=== PATIENT | female | born 1960 | race Caucasian/White ===

== ENCOUNTER → 2023-09-19 14:53 | Outpatient (REF) | payer OTHER, SELFPAY | LOC: HWRAD 14:53 | PROVIDERS: ATTENDING PHYSICIAN Internal Medicine Rheumatology; FAMILY PHYSICIAN Internal Medicine | DX: M81.0 Age-related osteoporosis without current pathological fracture (principal) | CPT/HCPCS: 77080 ==

== ENCOUNTER 2023-10-23 14:27 | Emergency (ER) | payer OTHER, SELFPAY ==
[2023-10-23 14:36] VITALS: BP 115/86
[2023-10-23 15:03] LABS: INR 1.16; PT 14.6 Sec (11.4-14.6)
[2023-10-23 15:06] LABS: ALT (SGPT) 26 U/L (0-35); AST (SGOT) 32 U/L (14-36); Albumin 4.4 g/dl (3.5-5.0); Alkaline Phosphatase 80 U/L (38-126); Blood Urea Nitrogen 15 mg/dl (7-17); Calcium 9.5 mg/dl (8.4-10.2); Carbon Dioxide 30 mmol/L (22-30); Chloride 102 mmol/L (98-107); Glucose 92 mg/dl (70-99); Sodium 137 mmol/L (135-145); Total Bilirubin 0.5 mg/dl (0.2-1.3); Total Protein 6.9 g/dl (6.3-8.2); eGFR > 60.00
[2023-10-23 15:10] LABS: Hematocrit 36.7 % (37.0-47.0); Hemoglobin 12.8 g/dL (12.0-16.0); Mean Corp Hgb Conc. 34.9 g/dL (33.0-37.0); Mean Corpuscular Hgb 33.2 pg (27.0-31.0); Mean Corpuscular Volume 95.3 fL (81.0-99.0); Mean Platelet Volume 9.1 fL (7.4-10.4); Platelet Count 225 10^3/uL (130-400); Red Blood Cell Count 3.85 10^6/uL (4.20-5.40); Red Cell Dist. Width 11.7 % (11.5-14.5); White Blood Cell Count 3.5 10^3/uL (4.8-10.8)
[2023-10-23 15:17] LABS: Troponin I < 0.012 ng/ml
[2023-10-23 15:51] LABS: % Basophils 0.9 % (0-2); % Eosinophils 2.3 % (0-6); % Lymphocytes 42.8 % (20.5-51.1); % Monocytes 12.4 % (1.7-9.3); % Neutrophils 41.6 % (42.2-75.2); Absolute Eosinophils 0.1 10^3/uL (0-0.7); Absolute Lymphocytes 1.5 10^3/uL (1.2-3.4); Absolute Monocytes 0.4 10^3/uL (0.1-0.6); Absolute Neutrophils 1.5 10^3/uL (1.4-6.5); Nucleated Red Blood Cells % 0 %
[2023-10-23 16:29] VITALS: BP 122/81
[2023-10-23] MEDS: NSS 1000 IV (16:31)
[2023-10-23 16:33] LABS: Erythrocyte Sed Rate 19 mm/hour (0-20)
--- NOTE | 2023-10-23 16:33 | ED.GENMED ---
History of Present Illness
<Shantal Soler PA-C - Last Filed: 10/23/23 18:41>
General
Chief Complaint: Chest Pain
Source: patient
Exam Limitations: none
Time Seen by Provider: 10/23/23 15:40
Nursing documentation reviewed up to this point in time: agreed with
History of Present Illness
History of Present Illness:
Patient is a 63-year-old female with history of SLE presenting to the emergency department for evaluation of intermittent chest pain. Patient states symptoms initially started yesterday afternoon and she describes a sharp intermittent pain in her
left chest that is very brief. Patient has not noticed any specific exacerbating or alleviating factors for discomfort. She states that it seems 'random'. She does state that yesterday evening when she was trying to sleep she had some pain when
she was laying on her left side but felt some relief while lying on her right side. No clear pleuritic or exertional correlation with pain. Pain is no worse with movement. There is no positional component to pain. Patient does note a very mild
dry cough at symptom onset. No associated fever, chills, shortness of breath, dizziness, lightheadedness, back pain, nausea/vomiting. Patient denies any recent viruses/illnesses. No known sick contacts. No recent travel. Patient denies any
personal or family history of blood clots or clotting disorders.
Patient does have a history of pericarditis a few years ago for which she was treated with steroids. She states that this seems 'somewhat similar 'but not nearly as intense as prior episode.
Past History
<Shantal Soler PA-C - Last Filed: 10/23/23 18:41>
Past History
ED Past Medical History: Other (History of lupus, depression)
ED Past Surgical History: None
Social History
Tobacco: Non-smoker
Alcohol: Occasional
Personal: Single
Living: with roommate
Employment: Employed
Review of Systems
<Shantal Soler PA-C - Last Filed: 10/23/23 18:41>
Review of Systems
Allergies reviewed?: Yes
All Other Systems: ROS reviewed and negative except as documented in HPI and ROS
Phy Exam
<Shantal Soler PA-C - Last Filed: 10/23/23 18:41>
Physical Exam
Physical Exam:
Vitals: Patient's vital signs are stable.
General: Patient is well appearing, no acute distress. Nontoxic-appearing
Skin: Warm and dry, no rashes or lesions
Head: Normocephalic, atraumatic
Eyes: Sclera nonicteric. EOMs intact. No nystagmus.
Throat: Protecting airway
Neck: Normal ROM, no cervical spine tenderness, no meningismus. No JVD
Cardiac: Regular rate and rhythm, no murmurs. No abnormal heart sounds.
Pulm: Normal respiratory effort, no wheezes, rales, rhonchi heard on exam. No apparent respiratory distress. Oxygen saturation 97 on room air
Abdomen: No abdominal tenderness.
Extremities: No evidence of cyanosis or edema. No erythema, warmth, tenderness of bilateral lower extremities. Great distal pulses
Neuro: AAOx3. CN II-XII intact. No focal neurologic deficits.
Psychiatric: Normal affect.
Scores
<Shantal Soler PA-C - Last Filed: 10/23/23 18:41>
Heart Score for Chest Pain Patients
STEMI patient?: No
History: Slightly or Non-Suspicious
ECG: Normal
Age: >45 - <65 years
Risk Factors: 1 or 2 Risk Factors
Troponin: </= Normal Limit
Heart Score for Chest Pain Patients: 2
Heart Score Risk: 2.5% MACE over next 6 weeks
Course
<Shantal Soler PA-C - Last Filed: 10/23/23 18:41>
Orders/Labs/Results
Orders:
Orders
10/23/23 14:29
Electrocardiogram (*1) Urgent
Reason for Study: Chest Pain
EKG- Treatment ONCE
10/23/23 14:43
Complete Blood Count/With Diff Urgent
Comprehensive Metabolic Panel Urgent
Erythrocyte Sed Rate Urgent
Comment: ESR ADDED ON BY FLOOR 4:17PM 10-23-23
Prothrombin Time Urgent
Troponin I Urgent
10/23/23 16:16
0.9% Sodium Chloride 1000 ml [Nss] 1,000 ml IV BOLUS
10/23/23 16:17
Add On- LAB Urgent
Tests Added?: ESR
CT Chest Pe Study Urgent
Comment: lupus, hx pericarditis
Reason For Exam: left sided chest pain
10/23/23 18:11
Colchicine 1.2 mg PO NOW STA
Abnormal Lab Results
10/23/23
14:43
WBC 3.5 L 10^3/uL
(4.8-10.8)
RBC 3.85 L 10^6/uL
(4.20-5.40)
Hct 36.7 L %
(37.0-47.0)
MCH 33.2 H pg
(27.0-31.0)
Neutrophils % 41.6 L %
(42.2-75.2)
Monocytes % 12.4 H %
(1.7-9.3)
10/23/23 14:43
10/23/23 14:43
Vital Signs
Initial and Last Documented VS:
Initial Vital Signs
Temp Pulse Resp BP Pulse Ox
98.8 F 68 18 115/86 97
10/23/23 14:36 10/23/23 14:36 10/23/23 14:36 10/23/23 14:36 10/23/23 14:36
Last Documented Vital Signs
Temp Pulse Resp BP Pulse Ox
98.8 F 58 16 122/79 100
10/23/23 14:36 10/23/23 18:08 10/23/23 18:08 10/23/23 18:06 10/23/23 18:06
<Domingo Perry MD - Last Filed: 10/23/23 18:12>
Orders/Labs/Results
Orders:
Orders
10/23/23 14:29
Electrocardiogram (*1) Urgent
Reason for Study: Chest Pain
EKG- Treatment ONCE
10/23/23 14:43
Complete Blood Count/With Diff Urgent
Comprehensive Metabolic Panel Urgent
Erythrocyte Sed Rate Urgent
Comment: ESR ADDED ON BY FLOOR 4:17PM 10-23-23
Prothrombin Time Urgent
Troponin I Urgent
10/23/23 16:16
0.9% Sodium Chloride 1000 ml [Nss] 1,000 ml IV BOLUS
10/23/23 16:17
Add On- LAB Urgent
Tests Added?: ESR
CT Chest Pe Study Urgent
Comment: lupus, hx pericarditis
Reason For Exam: left sided chest pain
10/23/23 18:11
Colchicine 1.2 mg PO NOW STA
Abnormal Lab Results
10/23/23
14:43
WBC 3.5 L 10^3/uL
(4.8-10.8)
RBC 3.85 L 10^6/uL
(4.20-5.40)
Hct 36.7 L %
(37.0-47.0)
MCH 33.2 H pg
(27.0-31.0)
Neutrophils % 41.6 L %
(42.2-75.2)
Monocytes % 12.4 H %
(1.7-9.3)
10/23/23 14:43
10/23/23 14:43
Vital Signs
Initial and Last Documented VS:
Initial Vital Signs
Temp Pulse Resp BP Pulse Ox
98.8 F 68 18 115/86 97
10/23/23 14:36 10/23/23 14:36 10/23/23 14:36 10/23/23 14:36 10/23/23 14:36
Last Documented Vital Signs
Temp Pulse Resp BP Pulse Ox
98.8 F 58 16 122/79 100
10/23/23 14:36 10/23/23 18:08 10/23/23 18:08 10/23/23 18:06 10/23/23 18:06
<Shantal Soler PA-C - Last Filed: 10/23/23 18:41>
MDM/Problems Addressed
Differential Diagnosis Includes:
Not limited to: Muscle strain, pericarditis, myocarditis, PE, pericardial effusion, pneumothorax, doubt ACS
MDM/Problems Addressed:
63-year-old female with history as documented presenting to the emergency department with atypical intermittent left-sided chest pain since yesterday afternoon. No clear pleuritic or exertional component to pain. Patient does have history of
pericarditis in the past. No recent viral illnesses. Patient denies any associated fever, chills, shortness of breath, back pain. Vital signs stable upon arrival. Physical exam as above. Patient is extremely well-appearing, in no apparent
distress. Heart regular rate and rhythm. No reproducible tenderness to anterior chest wall. Lungs clear bilaterally. She is oxygenating without any apparent respiratory distress 97 on room air. No clinical evidence of DVT on exam. No focal
neurologic deficits noted. Labs initiated in triage which are significant for mild leukopenia of 3.5 with elevation of monocytes. This may be suggestive of a mild underlying viral illness although it appears that patient has had leukopenia in the
past.. Otherwise chemistry without any clinically significant abnormalities. Troponin is normal. Very low suspicion for acute cardiac process and given symptoms initially started yesterday afternoon. I feel 1 troponin is sufficient to rule out
acute [place]. EKG shows normal sinus rhythm without any acute ischemic changes. No findings of pericarditis on EKG. Given patient's history of lupus on Plaquenil and past pericarditis�will proceed with CTA chest to rule out both pulmonary embolism
and pericardial effusion.
CTA chest report noted. No acute abnormalities. No evidence of pulmonary embolism and/or pericardial effusion. Very low suspicion for ACS. Symptoms may be due to pericarditis versus muscle strain. ESR mildly elevated from prior baseline
although still in normal limit at 19. Patient very stable and in no apparent distress. Vital signs remained stable in the emergency department. Given patient's history we will start patient on colchicine twice a day and have patient follow-up with
cardiology�wvll provide chest pain hotline. 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 Return precautions discussed at length.
Chronic conditions affecting care:
SLE
Acute Exacerbation and/or Progression of Chronic Illness:
N/A
<Shantal Soler PA-C - Last Filed: 10/23/23 18:41>
*Radiology
Radiology exam reviewed: preliminary read by ED provider and radiology read reviewed
*Pulse Oximetry
Patient hypoxic: no
*EKG
Interpreted by ED Provider?: Yes
EKG Intrepretation Date: 10/23/23
Interpretation: normal
Comparison EKG: no changes
Heart Rate: 60
Rate: normal
Rhythm: sinus
[place]: normal axis
Interval: normal interval
QRS Pattern: normal QRS
Ischemia: no ischemia
*[employer] Interpretation
Rate: normal
Interpretation: normal
Heart Rate: 68
Rhythm: sinus
*Critical Care Note
Total Time (30-74mins, 75-104mins- exclusive of procedures): Not Applicable
ED Attending Note
<Shantal Soler PA-C - Last Filed: 10/23/23 18:41>
-
Portions of this chart may have been created with voice recognition software.� Occasional wrong word or��sound alike� substitutions may have occurred due to the inherent limitations of voice recognition software.
<Domingo Perry MD - Last Filed: 10/23/23 18:12>
ED Attending Note
Patient seen and examined by attending physician: Yes
I performed the substantive portion of visit, reviewed & personally made and approve the management plan that is documented in note by myself or RAMSES.: Yes
ED Attending Note:
63-year-old female complaining of episodes of sharp localized chest pain. Points under the left breast. Some radiation to the back. No true shortness of breath but definitely hurts to take a deep breath. No nausea or diaphoresis. No infectious
symptoms. History of pericarditis. Symptoms are worse when lying on her left side.
On exam patient is nontoxic in no distress. Lungs clear and equal. Heart regular rate and rhythm no murmur. No rub. Abdomen nontender. Extremities are warm and dry. No cord or swelling.
EKG is stable. Labs are stable. No pulmonary emboli. No pericardial effusion.
Consistent with pericarditis versus pleuritis versus musculoskeletal. Anti-inflammatory colchicine and follow-up
Discharge Plan
Departure
Patient Disposition: Home (Routine Discharge)
Date of Disposition: 10/23/23
Time of Disposition: 17:53
Patient with high blood pressure during this ER visit?: No
Condition: Good
Covid-19: Not Applicable
Discharge Problem:
Chest pain
Instructions: Chest Pain CBC Follow Up, Chest Pain, Pericarditis
Prescriptions:
New
colchicine 0.6 mg capsule
0.6 mg PO BID 14 Days Qty: 28 0RF
No Action
Plaquenil 200 MG
200 mg PO DAILY
bupropion HCl [Wellbutrin SR] 100 MG tablet sustained-release 12 hr
100 mg PO BID
lamotrigine [Lamictal] 25 MG tablet
25 mg PO DAILY
acetaminophen [Tylenol] 325 MG capsule
650 mg PO Q6HPRN PRN (Reason: fever)
Referrals:
Troy Diallo DO [Family Provider] -
Alon Lyons MD [Active] - Next open appointment
Activity Restrictions/Additional Instructions:
RETURN TO THE EMERGENCY DEPARTMENT WITH ANY FEVERS, CHILLS, PERSISTENT CHEST PAIN, SHORTNESS OF BREATH, DIZZINESS, LIGHTHEADEDNESS, SEVERE ABDOMINAL PAIN, WORSENING IN CURRENT SYMPTOMS, OR ANY OTHER CONCERNS
-The prescriptions have been sent to your pharmacy. You should take this twice a day. You should follow-up with both cardiology and rheumatology for further evaluation/management and possible continuation of colchicine. You should take
Motrin/ibuprofen as needed for pain.
-As discussed�your imaging showed some degree of constipation. You should use MiraLAX at home and stay well-hydrated.
Monitor your symptoms closely and return to the emergency department any acute worsening/new symptoms
Interventions
Interventions:
*Risk Screen - Suicide Last Done: 10/23/23 14:36
*General Assessment Last Done: 10/23/23 14:36
*Neglect/Abuse Screening Last Done: 10/23/23 14:36
*ED COVID-19 Vaccine History Last Done: 10/23/23 15:30
ED- Cardiac Assessment Last Done: 10/23/23 16:25
Discharge Date and Time
Print Language: QATARI
[2023-10-23 18:06] VITALS: BP 122/79
[2023-10-23] MEDS: COLCHICINE 1.2 MG PO (18:16)
== END 2023-10-23 18:20 | disposition home or self-care (01) ==
LOC: EMR 14:27
PROVIDERS: Emergency Medicine; EMERGENCY PHYSICIAN Emergency Medicine; FAMILY PHYSICIAN Internal Medicine
DX: R07.89 Other chest pain (principal); M32.9 Systemic lupus erythematosus, unspecified; Z86.79 Personal history of other diseases of the circulatory system
CPT/HCPCS: 99284; 96360; 71275; 80053; 84484; 85025; 85610; 85652; 93005; Q9967

== ENCOUNTER 2024-04-09 11:06 | Day surgery (SDC) | payer OTHER, SELFPAY ==
[2024-04-09] VITALS (7 sets, daily range): BP systolic 131–147; BP diastolic 68–88; BMI 22.6
[2024-04-09] MEDS: TYLENOL 1000 MG PO (15:38)
[2024-04-09] MEDS: CELEBREX 200 MG PO (15:38)
[2024-04-09] MEDS: NORMOSOL-R/PLASMALYTE-A 1000 IV (15:38)
== END 2024-04-09 19:13 | disposition home or self-care (01) ==
LOC: SDS 11:06
PROVIDERS: ATTENDING PHYSICIAN Orthopaedic Surgery; FAMILY PHYSICIAN Internal Medicine
DX: S52.021A Displaced fracture of olecranon process without intraarticular extension of right ulna, initial encounter for closed fracture (principal); W19.XXXA Unspecified fall, initial encounter
CPT/HCPCS: 24685; C1713

== ENCOUNTER → 2024-04-09 11:11 | Outpatient (REF) | payer OTHER, SELFPAY ==
[2024-04-09 12:30] LABS: % Basophils 0.9 % (0-2); % Eosinophils 1.4 % (0-6); % Lymphocytes 39.4 % (20.5-51.1); % Monocytes 8.7 % (1.7-9.3); % Neutrophils 49.6 % (42.2-75.2); Absolute Eosinophils 0.1 10^3/uL (0-0.7); Absolute Lymphocytes 1.4 10^3/uL (1.2-3.4); Absolute Monocytes 0.3 10^3/uL (0.1-0.6); Absolute Neutrophils 1.7 10^3/uL (1.4-6.5); Hematocrit 36.1 % (37.0-47.0); Hemoglobin 12.2 g/dL (12.0-16.0); Mean Corp Hgb Conc. 33.8 g/dL (33.0-37.0); Mean Corpuscular Hgb 31.9 pg (27.0-31.0); Mean Corpuscular Volume 94.3 fL (81.0-99.0); Mean Platelet Volume 8.9 fL (7.4-10.4); Nucleated Red Blood Cells % 0 %; Platelet Count 229 10^3/uL (130-400); Red Blood Cell Count 3.83 10^6/uL (4.20-5.40); Red Cell Dist. Width 11.8 % (11.5-14.5); White Blood Cell Count 3.5 10^3/uL (4.8-10.8)
[2024-04-09 13:30] LABS: Blood Urea Nitrogen 12 mg/dl (7-17); Calcium 9.5 mg/dl (8.4-10.2); Carbon Dioxide 26 mmol/L (22-30); Chloride 100 mmol/L (98-107); Glucose 88 mg/dl (70-99); Potassium 4.2 mmol/L (3.5-5.1); Sodium 136 mmol/L (135-145); eGFR > 60.00
== END ==
LOC: REG 11:11
PROVIDERS: ATTENDING PHYSICIAN Orthopaedic Surgery; FAMILY PHYSICIAN Internal Medicine
DX: Z01.818 Encounter for other preprocedural examination (principal)
CPT/HCPCS: 36415; 80048; 85025

== ENCOUNTER → 2024-04-30 13:18 | Outpatient (REF) | payer OTHER, SELFPAY | LOC: WDC 13:18 | PROVIDERS: ATTENDING PHYSICIAN Obstetrics & Gynecology Gynecology; FAMILY PHYSICIAN Internal Medicine | DX: Z12.31 Encounter for screening mammogram for malignant neoplasm of breast (principal); R92.8 Other abnormal and inconclusive findings on diagnostic imaging of breast | CPT/HCPCS: 76642; 77063; 77067 ==